=== PATIENT | female | born 1960 | race Caucasian/White ===

== ENCOUNTER 2017-03-21 15:42 | Emergency (ER) | payer SELFPAY ==
[~2017-03-21] VITALS: Ht 157.5 cm; Wt 86.6 kg
[2017-03-21 19:41] VITALS: BP 121/79
== END 2017-03-21 19:41 | disposition home or self-care (01) ==
LOC: ED 15:42
DX: N39.0 Urinary tract infection, site not specified (principal); M54.16 Radiculopathy, lumbar region; Z90.89 Acquired absence of other organs
CPT/HCPCS: J1885